=== PATIENT | male | born 1990 | race Caucasian/White ===

== ENCOUNTER 2020-12-20 16:16 | Emergency (ER) | payer OTHER, SELFPAY ==
[~2020-12-20] VITALS: Ht 180.3 cm; Wt 110.0 kg
--- NOTE | 2020-12-20 16:29 | NUR ---
biba from home for allergic reaction. per ems, pt has NKA but has been using lidocaine moutwash for mouth sores and starts to have allergic rxn from that. pt has uses epi pen at home. 25 Benadryl admin dredgemaster. pt a&o, resps even and rapid, facial swelling noted. nadn.
--- NOTE | 2020-12-20 17:08 | NUR ---
joey Ram at bedside for initial assessment/eval
[2020-12-20] MEDS ORDERED: methylPREDNISolone SOD SUCC 125 MG/2 ML ONE (17:30)
[2020-12-20] MEDS ORDERED: SODIUM CHLORIDE 0.9% 1,000ML IVBOLUS ONE (17:30)
[2020-12-20] MEDS ORDERED: methylPREDNISolone SOD SUCC 125 MG/2 ML IVPush SCH (17:30)
[2020-12-20] MEDS ORDERED: ACETAMINOPHEN 500 MG TABLET PO ONE (17:30)
[2020-12-20] MEDS ORDERED: ACETAMINOPHEN 500 MG TABLET ONE (17:31)
[2020-12-20 18:02] LABS: BASOPHILS % (AUTO) 0 % (0-1); EOSINOPHILS % (AUTO) 0 % (1-7); LYMPHOCYTES % (AUTO) 7 % (22-44); MEAN CORPUSCULAR HEMOGLOBIN 31.3 pg (27.5-34.5); MEAN CORPUSCULAR HGB CONC 34.4 g/dL (33.2-36.2); MONOCYTES % (AUTO) 9 % (2-9); NEUTROPHILS % (AUTO) 84 % (42-75); PLATELET COUNT 411 x10^3/uL (130-400); RED BLOOD COUNT 4.84 x10^6/uL (4.38-5.82)
[2020-12-20 18:13] LABS: ALANINE AMINOTRANSFERASE 31 U/L (12-78); ALBUMIN 2.8 g/dL (3.4-5.0); ANION GAP 5 mmol/L (5-15); CALCIUM 8.4 mg/dL (8.5-10.1); CHLORIDE 105 mmol/L (98-107); CREATININE 1.09 mg/dL (0.7-1.3)
[2020-12-20 18:24] LABS: ALKALINE PHOSPHATASE 91 U/L (45-117); BILIRUBIN,TOTAL 0.8 mg/dL (0.2-1.0); TOTAL PROTEIN 8.4 g/dL (6.4-8.2)
[2020-12-20 18:42] LABS: MICROSCOPIC AUTO
--- NOTE | 2020-12-20 19:35 | NUR ---
covid test swabbed and sent to lab, pt resting in bed, fluids infusing, a&o, resps even and unlabored, ryan.
--- NOTE | 2020-12-20 19:35 | NUR ---
covid test swabbed and sent to lab, pt resting in bed, fluids infusing, a&o, resps even and unlabored, ryan.
[2020-12-20 19:36] VITALS: BP 110/75
[2020-12-20] MEDS ORDERED: HYDROcodone/APAP 7.5-325MG/15ML UDC PO ONE (21:00)
[2020-12-20] MEDS ORDERED: HYDROcodone/APAP 7.5-325MG/15ML UDC ONE (21:10)
--- NOTE | 2020-12-20 21:19 | NUR ---
pt medicated per order, educated on dc instructions, verbalized undertsanding. ambulatory to dc desk with steayd gait,.
== END 2020-12-20 21:30 | disposition home or self-care (01) ==
LOC: ED 16:30
DX: A69.1 Other Vincent's infections (principal); Z20.822 Contact with and (suspected) exposure to COVID-19; R50.9 Fever, unspecified; R00.0 Tachycardia, unspecified
CPT/HCPCS: 36415; 71045; 80053; 81001; 83605; 84145; 85025; 87040; 87635; 93005; 96361; 96374; 99285; J2930; J7030